=== PATIENT | female | born 1935 | race Two or more races ===

== ENCOUNTER → 2017-06-05 | Emergency (ER) | payer OTHER ==
[~2017-06-05] VITALS: Ht 172.7 cm; Wt 62.6 kg
== END | disposition home or self-care (01) ==
LOC: ER 12:46
DX: S01.111A Laceration without foreign body of right eyelid and periocular area, initial encounter (principal); S01.511A Laceration without foreign body of lip, initial encounter; W45.8XXA Other foreign body or object entering through skin, initial encounter; Y93.89 Activity, other specified; Y92.512 Supermarket, store or market as the place of occurrence of the external cause; Y99.8 Other external cause status

== ENCOUNTER 2020-03-30 08:34 | Outpatient (CLI) | payer OTHER | END 2020-03-30 08:38 | disposition home or self-care (01) | LOC: SONOGRAMA 08:34 → MAMO-SONO 09:15 | PROVIDERS: ATTEND Internal Medicine Gastroenterology | DX: Q61.02 Congenital multiple renal cysts (principal); R10.84 Generalized abdominal pain ==

== ENCOUNTER 2020-05-28 09:12 | Outpatient (CLI) | payer OTHER | END 2020-05-28 09:17 | disposition home or self-care (01) | LOC: NUCLEAR 09:12 | PROVIDERS: ATTEND Internal Medicine Gastroenterology | DX: K81.1 Chronic cholecystitis (principal) | CPT/HCPCS: 78227; A9537; J2805 ==

== ENCOUNTER → 2020-10-04 | Outpatient (CLI) | payer OTHER | END | disposition home or self-care (01) | LOC: MAMO-SONO 07:45 → SONOGRAMA 07:47 | PROVIDERS: ATTEND Internal Medicine Gastroenterology | DX: K82.4 Cholesterolosis of gallbladder (principal) ==

== ENCOUNTER 2021-01-02 12:51 | Outpatient (CLI) | payer OTHER | END 2021-01-02 12:52 | disposition home or self-care (01) | LOC: NUCLEAR 12:51 | PROVIDERS: ATTEND Internal Medicine | DX: I73.9 Peripheral vascular disease, unspecified (principal) ==

== ENCOUNTER 2021-02-02 19:38 | Emergency (ER) | payer OTHER ==
[~2021-02-02] VITALS: Ht 172.7 cm; Wt 56.7 kg
== END 2021-02-03 00:56 | disposition home or self-care (01) ==
LOC: ER 19:38
DX: S01.522A Laceration with foreign body of oral cavity, initial encounter (principal); S52.592A Other fractures of lower end of left radius, initial encounter for closed fracture; S50.11XA Contusion of right forearm, initial encounter; W18.09XA Striking against other object with subsequent fall, initial encounter; Y93.89 Activity, other specified; Y92.488 Other paved roadways as the place of occurrence of the external cause; Y99.8 Other external cause status

== ENCOUNTER 2021-03-20 10:07 | Outpatient (CLI) | payer OTHER | END 2021-03-20 10:14 | disposition home or self-care (01) | LOC: MAMO-SONO 10:07 | PROVIDERS: ATTEND Internal Medicine | DX: N60.11 Diffuse cystic mastopathy of right breast (principal); N60.12 Diffuse cystic mastopathy of left breast; Z12.31 Encounter for screening mammogram for malignant neoplasm of breast ==

== ENCOUNTER 2021-03-26 09:55 | Outpatient (CLI) | payer OTHER | END 2021-03-26 10:00 | disposition home or self-care (01) | LOC: RAD 09:55 | PROVIDERS: ATTEND Orthopaedic Surgery | DX: M25.532 Pain in left wrist (principal); S52.532A Colles' fracture of left radius, initial encounter for closed fracture ==

== ENCOUNTER 2021-06-21 09:38 | Outpatient (CLI) | payer OTHER | END 2021-06-21 09:50 | disposition home or self-care (01) | LOC: MRI 09:38 | PROVIDERS: ATTEND Psychiatry & Neurology Clinical Neurophysiology | DX: F01.50 Vascular dementia, unspecified severity, without behavioral disturbance, psychotic disturbance, mood disturbance, and anxiety (principal) | CPT/HCPCS: 70551 ==

== ENCOUNTER 2021-08-14 08:04 | Outpatient (CLI) | payer OTHER | END 2021-08-14 08:05 | disposition home or self-care (01) | LOC: NUCLEAR 08:04 | PROVIDERS: ATTEND Internal Medicine | DX: I70.201 Unspecified atherosclerosis of native arteries of extremities, right leg (principal) ==

== ENCOUNTER 2022-07-15 09:05 | Outpatient (CLI) | payer OTHER | END 2022-07-15 09:10 | disposition home or self-care (01) | LOC: MAMO-SONO 09:05 | PROVIDERS: ATTEND Internal Medicine | DX: N60.11 Diffuse cystic mastopathy of right breast (principal); N60.12 Diffuse cystic mastopathy of left breast ==

== ENCOUNTER 2022-07-28 13:07 | Outpatient (CLI) | payer OTHER | END 2022-07-28 13:09 | disposition home or self-care (01) | LOC: NUCLEAR 13:07 | PROVIDERS: ATTEND Internal Medicine | DX: M81.0 Age-related osteoporosis without current pathological fracture (principal) ==

== ENCOUNTER 2022-08-25 13:42 | Emergency (ER) | payer OTHER ==
[~2022-08-25] VITALS: Ht 172.7 cm; Wt 56.7 kg
[2022-08-25] MEDS ORDERED: CARVEDILOL6.25 MG PO (14:58)
[2022-08-25] MEDS ORDERED: NORVASC5 MG PO (14:59)
[2022-08-25] MEDS ORDERED: PLAVIX75 MG PO (14:59)
[2022-08-25] MEDS ORDERED: CILOSTAZOL50 MG PO (14:59)
[2022-08-25] MEDS ORDERED: LIPITOR20 MG PO (15:00)
[2022-08-25] MEDS ORDERED: ZETIA10 MG (15:00)
[2022-08-25] MEDS ORDERED: CANDESARTAN CILE8 MG (15:00)
[2022-08-25] MEDS ORDERED: ADULT LOW DOSE81 M1 PO (15:01)
== END 2022-08-25 18:52 | disposition home or self-care (01) ==
LOC: ER 13:42
DX: S01.121A Laceration with foreign body of right eyelid and periocular area, initial encounter (principal); W10.0XXA Fall (on)(from) escalator, initial encounter; Y93.89 Activity, other specified; Y92.63 Factory as the place of occurrence of the external cause; I49.8 Other specified cardiac arrhythmias; I10 Essential (primary) hypertension; E78.00 Pure hypercholesterolemia, unspecified

== ENCOUNTER 2023-05-24 21:18 | Inpatient (IN) | payer OTHER ==
[~2023-05-24] VITALS: Ht 172.7 cm; Wt 51.7 kg
[~2023-05-24 21:18] MED LIST: ADULT LOW DOSE81 M1 PO; CANDESARTAN CILE8 MG; CARVEDILOL6.25 MG PO; CILOSTAZOL50 MG PO; LIPITOR20 MG PO; NORVASC5 MG PO; PLAVIX75 MG PO; ZETIA10 MG
[2023-05-25 00:24] LABS: HEMATOCRIT 32.7 % (36.0-45.00); HEMOGLOBIN 10.8 g/dL (12.0-15.00); MEAN CELL VOLUME 92.2 fL (80.00-100.00); MEAN CORPUSCULAR HEMOGLOBIN 30.6 pg (27.00-32.0); MEAN CORPUSCULAR HGB CONC 33.2 g/dl (32.0-36.0); PLATELET COUNT 188 K/uL (150-450); RED BLOOD COUNT 3.55 M/uL (4.00-6.00); RED CELL DISTRIBUTION WIDTH 13.8 % (11.5-14.5)
[2023-05-25 00:37] LABS: INR 1.05; PARTIAL THROMBOPLASTIN TIME 27.8 SECONDS (22.0-34.0)
[2023-05-25 00:52] LABS: CALCIUM 9.1 mg/dL (8.5-10.1); CREATININE SERUM 1.43 mg/dL (0.55-1.02); GFR 34.87; POTASSIUM 4.82 mEq/L (3.5-5.1)
[2023-05-26 07:15] LABS: CALCIUM 8.8 mg/dL (8.5-10.1); CREATININE SERUM 1.21 mg/dL (0.55-1.02); GFR 42.29; POTASSIUM 4.73 mEq/L (3.5-5.1)
[2023-05-26 13:06] LABS: HEMATOCRIT 33.1 % (36.0-45.00); HEMOGLOBIN 11.3 g/dL (12.0-15.00); MEAN CELL VOLUME 87.3 fL (80.00-100.00); MEAN CORPUSCULAR HEMOGLOBIN 29.8 pg (27.00-32.0); MEAN CORPUSCULAR HGB CONC 34.2 g/dl (32.0-36.0); PLATELET COUNT 377 K/uL (150-450); RED CELL DISTRIBUTION WIDTH 13.9 % (11.5-14.5)
== END 2023-05-28 15:42 | disposition home or self-care (01) | DRG 392 ==
LOC: ER 21:19 → MEDJ 05-25 13:57
PROVIDERS: Emergency Medicine; ADMIT Internal Medicine; ATTEND Internal Medicine
PROC: BW21ZZZ Computerized Tomography (CT Scan) of Abdomen and Pelvis (ICD-10-PCS; principal; 2023-05-24)
DX: K52.89 Other specified noninfective gastroenteritis and colitis (principal); K62.5 Hemorrhage of anus and rectum; I10 Essential (primary) hypertension; Z72.0 Tobacco use

== ENCOUNTER 2025-05-02 16:45 | Emergency (ER) | payer OTHER ==
[~2025-05-02] VITALS: Ht 167.6 cm; Wt 59.0 kg
[2025-05-02 17:59] VITALS: BP 170/70; O2SAT 98
[2025-05-02] MEDS ORDERED: DIPHTH,PERTUSS(ACELL),TET VAC 0.5 ML SYRINGE IM ONE (20:25)
[2025-05-02] MEDS ORDERED: CEFTRIAXONE SODIUM 1,000 MG VIAL ONE (20:25)
[2025-05-02] MEDS ORDERED: CEFTRIAXONE SODIUM 1,000 MG in DEXTROSE 5 % IN WATER 100 ML IV ONE (20:45)
[2025-05-02] MEDS ORDERED: ACETAMINOPHEN 500 MG GEL..CAP PO ONE (20:45)
[2025-05-02 21:05] LABS: BASO % 0.5 % (0.1-1.2); EOS # 2.66 (0.04-0.54); LYMPH # 2.42 (1.18-3.74); LYMPH % 24.9 % (19.3-53.1); MEAN PLATELET VOLUME 9.70 fl (9.4-12.4); MONO # 0.86 (0.24-0.82); MONO % 8.8 % (4.7-12.5); NEUT # 3.71 (1.56-6.13); NEUT % 38.2 % (34.0-71.1); RED CELL DISTRIBUTION WIDTH 14.6 % (11.6-14.4)
[2025-05-02 21:17] LABS: INR 1.01
[2025-05-02 21:19] LABS: ALT/SGPT 26.0 U/L (12-78); AST/SGOT 28.0 U/L (15-37); BILIRUBIN TOTAL 0.5 mg/dL (0.3-1.2); BUN CREA RATIO 15.0 (7.0-25.0); CREATININE SERUM 1.51 mg/dL (0.55-1.02); GFR 32.6; GLOBULINA 3.5 G/DL (2.4-3.5); GLUCOSE FASTING 105.0 mg/dL (65-100); OSMOLALITY SERUM 282.0 MOSM/KG (275-295)
[2025-05-02 21:35] LABS: BASOPHIL MAN 2.0 %; EOS % 27.4 % (0.7-7.0); EOSINOPHIL MAN 29.0 %; LYMPHOCYTE MAN 20.0 %; MONOCYTE MAN 5.0 %; NEUTROPHILS MAN 39.0 %
[2025-05-03] MEDS ORDERED: AMOX1TAB5 PO (00:04)
[2025-05-03] MEDS ORDERED: PEPCID AC20 MG PO (00:04)
== END 2025-05-03 00:07 | disposition home or self-care (01) ==
LOC: ER 16:46
PROVIDERS: General Practice
DX: S09.90XA Unspecified injury of head, initial encounter (principal); W19.XXXA Unspecified fall, initial encounter; Y93.89 Activity, other specified; Y92.89 Other specified places as the place of occurrence of the external cause; Y99.8 Other external cause status
CPT/HCPCS: 12013; 36415; 70450; 70490; 90471; 90714; 93005; 96365; 99284; J0696; J1670; J2360